=== PATIENT | male | born 2000 | race Caucasian/White ===

== ENCOUNTER 2019-04-12 21:38 | Emergency (ER) | payer OTHER, SELFPAY ==
[2019-04-12] MEDS ORDERED: IBUPROFEN 400 MG TAB ONE (22:25)
[2019-04-12] MEDS ORDERED: IBUPROFEN 200 MG TAB PO ONE (22:25)
[2019-04-12] MEDS ORDERED: NA CHLORIDE 0.9% 1,000 ML ONE (22:53)
[2019-04-12 23:09] LABS: Absolute Lymphocytes (CBC) 0.3 K/uL (0.7-4.9); Basophils % 0.3 % (0-1.3); Hematocrit 44.2 % (39.6-49.0); Lymphocytes % 4.8 % (15.3-44.8); MPV 7.6 fL (7.6-11.3); RBC Red Blood Cell Count 4.86 M/uL (4.33-5.43)
[2019-04-12 23:32] LABS: ALT/SGPT 30 U/L (12-78); AST/SGOT 29 U/L (15-37); Albumin 4.2 g/dL (3.4-5.0); Alkaline Phosphatase 43 U/L (45-117); BUN Blood Urea Nitrogen 15 mg/dL (7-18); Bicarbonate 27 mmol/L (21-32); Bilirubin Direct < 0.1 mg/dL (0-0.2); Bilirubin Total 0.3 mg/dL (0.2-1.0); Glucose Level 107 mg/dL (74-106); Lipase 94 U/L (73-393); Potassium 3.4 mmol/L (3.5-5.1); Protein, Total 7.4 g/dL (6.4-8.2); Sodium Level 137 mmol/L (136-145)
[2019-04-12 23:40] LABS: Urine Blood NEGATIVE (NEG); Urine Glucose NEGATIVE (NEG); Urine Protein NEGATIVE (NEG); Urine Specific Gravity <1.005 (1.005-1.030); Urine pH 5.5 (5.0-7.0)
--- NOTE | 2019-04-13 02:17 | EDPHYS ---
Physician Documentation [facility] Name: Jay Jay Cole Age: 18 yrs Sex: Male : 2000 Arrival Date: 04/12/2019 Time: 21:43 Bed 16 Private MD: ED Physician Paras Phoenix HPI: 04/12 22:39 This 18 yrs old Male presents to ER via Ambulatory with complaints of Fever. pm1 22:39 The patient reports fever, that was measured at 102 degrees Fahrenheit, Presenting with pm1 a primary complaint of sore throat. Onset: The symptoms/episode began/occurred yesterday. Associated signs and symptoms: Pertinent positives: abdominal pain, nausea, Pertinent negatives: diarrhea, vomiting. Severity of symptoms: in the emergency department the symptoms are worse. The patient has not experienced similar symptoms in the past. The patient has not recently seen a physician. Historical: - Allergies: 21:50 Cefzil; la1 - PMHx: 21:50 None; la1 - PSHx: 21:50 pilonidal sx; la1 - Immunization history:: Adult Immunizations up to date. - Social history:: Smoking status: Patient/guardian denies using tobacco. - Ebola Screening: : No symptoms or risks identified at this time. ROS: 22:39 Eyes: Negative for injury, pain, redness, and discharge. pm1 22:39 Neck: Negative for injury, pain, and swelling, Cardiovascular: Negative for chest pain, palpitations, and edema, Respiratory: Negative for shortness of breath, cough, wheezing, and pleuritic chest pain. 22:39 Back: Negative for injury and pain, : Negative for injury, bleeding, discharge, and swelling, MS/Extremity: Negative for injury and deformity, Skin: Negative for injury, rash, and discoloration, Neuro: Negative for headache, weakness, numbness, tingling, and seizure. 22:39 Constitutional: Positive for body aches, fever. 22:39 ENT: Positive for sore throat, Negative for ear pain. 22:39 Abdomen/GI: Positive for abdominal pain, nausea, Negative for vomiting, diarrhea, constipation. Exam: 22:39 Constitutional: This is a well developed, well nourished patient who is awake, alert, pm1 and in no acute distress. Head/Face: Normocephalic, atraumatic. Eyes: Pupils equal round and reactive to light, extra-ocular motions intact. Lids and lashes normal. Conjunctiva and sclera are non-icteric and not injected. Cornea within normal limits. Periorbital areas with no swelling, redness, or edema. 22:39 Neck: Trachea midline, no thyromegaly or masses palpated, and no cervical lymphadenopathy. Supple, full range of motion without nuchal rigidity, or vertebral point tenderness. No Meningismus. Chest/axilla: Normal chest wall appearance and motion. Nontender with no deformity. No lesions are appreciated. Cardiovascular: Regular rate and rhythm with a normal S1 and S2. No gallops, murmurs, or rubs. Normal PMI, no JVD. No pulse deficits. Respiratory: Lungs have equal breath sounds bilaterally, clear to auscultation and percussion. No rales, rhonchi or wheezes noted. No increased work of breathing, no retractions or nasal flaring. 22:39 Back: No spinal tenderness. No costovertebral tenderness. Full range of motion. Skin: Warm, dry with normal turgor. Normal color with no rashes, no lesions, and no evidence of cellulitis. MS/ Extremity: Pulses equal, no cyanosis. Neurovascular intact. Full, normal range of motion. 22:39 ENT: External ear(s): are unremarkable, Ear canal(s): are normal, TM's: bulging, on the right, erythema, is not appreciated, Examination of the other ear shows no obvious abnormality, Mouth: is normal, Posterior pharynx: Airway: normal, no evidence of obstruction, patent, Tonsils: are normal in appearance, erythema, that is moderate, peritonsillar mass, is not appreciated, pooling of secretions, is not appreciated. 22:39 Abdomen/GI: Inspection: abdomen appears normal, Palpation: soft, moderate abdominal tenderness, in the umbilical area, mass, is not appreciated, rebound tenderness, is not appreciated. 22:39 Neuro: Orientation: is normal, Motor: is normal, moves all fours. Vital Signs: 21:49 BP 111 / 74; Pulse 91; Resp 16; Temp 102.0; Pulse Ox 100% on R/A; Weight 68.04 kg; la1 Height 5 ft. 9 in. (175.26 cm); 23:08 BP 112 / 65; Pulse 121; Resp 19; Temp 99.1; Pulse Ox 100% on R/A; rv 23:30 BP 106 / 56; Pulse 76; Resp 17; Pulse Ox 100% on R/A; rv 04/13 02:15 BP 109 / 63; Pulse 81; Resp 16 S; Pulse Ox 100% on R/A; Pain 0/10; cc3 04/12 21:49 Body Mass Index 22.15 (68.04 kg, 175.26 cm) la1 [facility]: 04/12 22:38 Patient medically screened. pm1 04/13 02:15 Data reviewed: vital signs. Data interpreted: Pulse oximetry: on room air is 100 %. pm1 Interpretation: normal. Counseling: I had a detailed discussion with the patient and/or guardian regarding: the historical points, exam findings, and any diagnostic results supporting the discharge/admit diagnosis, lab results, radiology results, the need for outpatient follow up, to return to the emergency department if symptoms worsen or persist or if there are any questions or concerns that arise at home. 04/12 22:12 Order name: Flu; Complete Time: 23:05 04/12 22:12 Order name: Strep; Complete Time: 23:05 04/12 22:12 Order name: [place] Screen Profile; Complete Time: 23:05 04/12 22:38 Order name: Basic Metabolic Panel; Complete Time: 23:35 pm1 04/12 22:38 Order name: CBC with Diff; Complete Time: 23:12 pm1 04/12 22:38 Order name: Creatinine for Radiology; Complete Time: 23:35 pm1 04/12 22:38 Order name: Hepatic Function; Complete Time: 23:35 pm1 04/12 22:38 Order name: Lipase; Complete Time: 23:35 pm1 04/12 22:38 Order name: IV Saline Lock; Complete Time: 22:40 pm1 04/12 22:38 Order name: Labs collected and sent; Complete Time: 22:40 pm1 04/12 22:38 Order name: CT Abd/Pelvis - PO and IV Contrast pm1 04/12 22:38 Order name: Urine Dipstick-Ancillary (obtain specimen); Complete Time: 23:16 pm1 04/12 23:06 Order name: Throat Culture [facility] 04/12 23:19 Order name: Urine Dipstick--Ancillary (enter results); Complete Time: 23:47 mw2 Administered Medications: No medications were administered Disposition: 04/13/19 02:16 Discharged to Home. Impression: Acute pharyngitis, Unspecified abdominal pain. - Condition is Stable. - Discharge Instructions: Abdominal Pain, Adult, Pharyngitis. - Work release form, Medication Reconciliation Form, Thank You Letter, Antibiotic Education, Prescription Opioid Use form. - Follow up: Emergency Department; When: As needed; Reason: Worsening of condition. Follow up: Private Physician; When: 2 - 3 days; Reason: Recheck today's complaints, Continuance of care, Re-evaluation by your physician. - Problem is new. - Symptoms have improved. Signatures: Dispatcher [employer] EDMS Gerardo Foster RN RN la1 Demarcus Razo, IT TRAINING SPECIALIST IT TRAINING SPECIALIST pm1 Evangelina Sylvester cc3 Corrections: (The following items were deleted from the chart) 02:38 02:16 04/13/2019 02:16 Discharged to Home. Impression: Acute pharyngitisUnspecified cc3 abdominal pain. Condition is Stable. Forms are Medication Reconciliation Form, Thank You Letter, Antibiotic Education, Prescription Opioid Use. Follow up: Emergency Department; When: As needed; Reason: Worsening of condition. Follow up: Private Physician; When: 2 - 3 days; Reason: Recheck today's complaints, Continuance of care, Re-evaluation by your physician. Problem is new. Symptoms have improved. pm1
--- NOTE | 2019-04-13 02:17 | ER ---
Nurse's Notes [facility] Name: Jay Jay Cole Age: 18 yrs Sex: Male : 2000 Arrival Date: 04/12/2019 Time: 21:43 Bed 16 Private MD: Diagnosis: Unspecified abdominal pain;Acute pharyngitis Presentation: 04/12 21:49 Presenting complaint: Patient states: I have been feeling sick for the last 2 days. la1 Fever started today. tylenol taken at 2000 (1gm). Transition of care: patient was not received from another setting of care. Onset of symptoms was April 12, 2019. Risk Assessment: Do you want to hurt yourself or someone else? Patient reports no desire to harm self or others. Initial Sepsis Screen: Does the patient have a suspected source of infection?. Initial Sepsis Screen: Does the patient meet any 2 criteria? Temp <36.0*C (96.8*F)) or > 38.3*C (100.9*F). Does the patient have a suspected source of infection? No. Patient's initial sepsis screen is negative. Care prior to arrival: None. 21:49 Method Of Arrival: Ambulatory la1 21:49 Acuity: MISTI 4 la1 Historical: - Allergies: 21:50 Cefzil; la1 - PMHx: 21:50 None; la1 - PSHx: 21:50 pilonidal sx; la1 - Immunization history:: Adult Immunizations up to date. - Social history:: Smoking status: Patient/guardian denies using tobacco. - Ebola Screening: : No symptoms or risks identified at this time. Screenin:27 Abuse screen: Denies threats or abuse. Denies injuries from another. Nutritional rv screening: No deficits noted. Tuberculosis screening: No symptoms or risk factors identified. Fall Risk None identified. Assessment: 22:03 General: Appears in no apparent distress. comfortable, Behavior is calm, cooperative. rv 22:23 Pain: Complains of pain in throat. Neuro: Level of Consciousness is awake, alert, obeys rv commands, Oriented to person, place, time, situation. Cardiovascular: Patient's skin is warm and dry. Respiratory: Airway is patent. GI: No signs and/or symptoms were reported involving the gastrointestinal system. : No signs and/or symptoms were reported regarding the genitourinary system. EENT: No signs and/or symptoms were reported regarding the EENT system. Derm: Skin is intact. Musculoskeletal: No signs and/or symptoms reported regarding the musculoskeletal system. 23:52 Reassessment: Patient appears in no apparent distress at this time. Patient and/or rv family updated on plan of care and expected duration. Pain level reassessed. Patient is alert, oriented x 3, equal unlabored respirations, skin warm/dry/pink. awaiting for CT scan. Patient states feeling better. 04/13 02:20 Reassessment: Patient appears in no apparent distress at this time. Patient and/or cc3 family updated on plan of care and expected duration. Pain level reassessed. Patient is alert, oriented x 3, equal unlabored respirations, skin warm/dry/pink. FRANKLYN Razo discharged the patient home, no prescription given. IV cannula removed and patient left ER vitally stable and ambulatory with his girlfriend. No valuables left in the patient's room. Patient denies pain at this time. Patient states feeling better. Patient states symptoms have improved. Vital Signs: 04/12 21:49 BP 111 / 74; Pulse 91; Resp 16; Temp 102.0; Pulse Ox 100% on R/A; Weight 68.04 kg; la1 Height 5 ft. 9 in. (175.26 cm); 23:08 BP 112 / 65; Pulse 121; Resp 19; Temp 99.1; Pulse Ox 100% on R/A; rv 23:30 BP 106 / 56; Pulse 76; Resp 17; Pulse Ox 100% on R/A; rv 04/13 02:15 BP 109 / 63; Pulse 81; Resp 16 S; Pulse Ox 100% on R/A; Pain 0/10; cc3 04/12 21:49 Body Mass Index 22.15 (68.04 kg, 175.26 cm) la1 ED Course: 04/12 21:43 Patient arrived in ED. ag3 21:49 Triage completed. la1 21:50 Arm band placed on left wrist. la1 21:52 Demarcus Razo NP is PHCP. pm1 21:52 Paras Phoenix MD is Attending Physician. pm1 22:03 Silvio Jay RN is Primary Nurse. rv 22:27 Patient has correct armband on for positive identification. Bed in low position. Call rv light in reach. Side rails up X 1. Pulse ox on. NIBP on. 22:27 Initial lab(s) drawn, by me, sent to lab. Flu and/or RSV swab sent to lab. Strep swab rv sent to lab. 22:40 Inserted saline lock: 20 gauge in left antecubital area, using aseptic technique. Blood rv collected. 04/13 01:28 CT Abd/Pelvis - PO and IV Contrast In Process Unspecified. EDMS 02:20 No provider procedures requiring assistance completed. IV discontinued, intact, cc3 bleeding controlled, No redness/swelling at site. Pressure dressing applied. Administered Medications: No medications were administered Outcome: 02:16 Discharge ordered by MD. pm1 02:20 Discharged to home ambulatory, with friend. cc3 02:20 Condition: stable 02:20 Discharge instructions given to patient, Instructed on discharge instructions, follow up and referral plans. Demonstrated understanding of instructions, follow-up care. 02:38 Patient left the ED. cc3 Signatures: Dispatcher [employer] EDMS Gerardo Foster, RN RN la1 Demarcus Razo, SUPERVISOR [employer] pm1 Silvio Jay RN RN Evangelina Chahal cc3 Laurita Gandhi3
[2019-04-13 02:44] VITALS: O2SAT 100
[2019-04-13 02:45] VITALS: TEMP 99.1
[2019-04-13 02:48] VITALS: BP 109/63
--- NOTE | 2019-04-13 10:09 | RAD REPORT ---
EXAM DESCRIPTION: CT - Abdomen Pelvis W Contrast - 04/13/2019 4:26 am CLINICAL HISTORY: ABD PAIN TECHNIQUE: Contiguous axial images obtained through the abdomen and pelvis following the uneventful administration of IV contrast. Coronal and sagittal reformatted images were provided. This exam was performed according to our departmental dose-optimization program, which includes autom ated exposure control, adjustment of the mA and/or kV according to patient size and/or use of iterati ve reconstruction technique. COMPARISON: None available for comparison. FINDINGS: Lung bases: Clear Liver: Unremarkable Gallbladder and biliary system: Unremarkable Pancreas: Unremarkable Spleen: Unremarkable Adrenals: Unremarkable Kidneys: Normal renal cortical enhancement. No calculi. No hydronephrosis. Bowel: The terminal ileum appears somewhat thickened. Moderate stool within the distal large bowel. N o obstruction. Appendix: Normal caliber appendix. No findings to suggest acute appendicitis. Urinary bladder: The urinary bladder is distended. Reproductive: Unremarkable as visualized Lymph nodes: No pathologically enlarged lymph nodes. Peritoneum: Small amount of free fluid within the pelvis. No free air. Vessels: No abdominal aortic aneurysm. Abdominal wall: Unremarkable Bones: Unremarkable IMPRESSION: 1. The terminal ileum appears somewhat thickened and may reflect mild nonspecific ente ritis. 2. Other findings as above. Electronically signed by: Avinash Vela MD 04/13/2019 1:42 AM CDT Due to temporary technical issues with the PACS/Fluency reporting system, reports are being signed by the in house radiologist as a courtesy to ensure prompt reporting. The interpreting radiologist is f ully responsible for the content of the report.
== END 2019-04-13 02:38 | disposition home or self-care (01) ==
LOC: ER 21:38
DX: J02.9 Acute pharyngitis, unspecified (principal); R10.9 Unspecified abdominal pain; Z88.1 Allergy status to other antibiotic agents
CPT/HCPCS: 36415; 74177; 80048; 80076; 81003; 83690; 85025; 86308; 87070; 87081; 87804; 99284; J7030; Q9967